=== PATIENT | female | born 1965 | race Caucasian/White ===

== ENCOUNTER 2017-05-08 13:40 | Emergency (ER) | payer OTHER, SELFPAY ==
--- NOTE | 2017-05-08 14:45 | EDM.PDOC ---
ED HPI GENERAL MEDICAL PROBLEM - General Chief Complaint: ENT Problem Stated Complaint: TOOTH PAIN/FLU LIKE SYMPTOMS Time Seen by Provider: 05/08/17 14:08 Source of Information: Reports: Patient History Limitations: Reports: No Limitations - History of Present Illness INITIAL COMMENTS - FREE TEXT/NARRATIVE: 51-year-old female presents to the ER for multiple different complaints. Current complaints include pain to the right lower tooth, feeling shaky and fatigued. She also is complaining of cold symptoms. Patient reports that she's been experiencing dental pain for about one week. Pain is primarily to the right lower molar. She was at the dentist on . Dentist informed her it was her gums. She reports x-rays were done. She said she was prescribed a mouth rinse but is my had minor relief. She states that she was instructed seen [employer]ator [employer]. Reports that she took some of her daughter' s hydrocodone last night and earlier today. States that it hasn't helped much. Reports pain radiating to her right ear and jaw. No headaches or sinus pain. Patient also reports she's been experiencing flulike symptoms. States she's been ill with flu-like symptoms since 2 weeks before Christina. This sounds like her symptoms gradually improved and then they worsened again. She denies any coughs, fevers or vomiting. She states that she's had diarrhea and nausea. She reports feeling shaky, weak, decreased energy and states that her legs feel shaky. Reports that her grandson did have influenza type A. She states that she had some amoxicillin at home but she gave this to her . She states his symptoms have now completely resolved but her symptoms have persisted. Patient also feels that her thyroid may be off. She is diagnosed with hypothyroidism. She is prescribed levothyroxin but has not been taking it. She is currently taking "thyroid gold", a homeopathic medication. Was previously taking 4 tabs of thyroid gold. About 1 week ago decreased to 2 tabs of the medication. Right Tooth/Teeth Pain Score (Numeric/FACES): 10 - Related Data Allergies Allergy/AdvReac Type Severity Reaction Status Date / Time No Known Allergies Allergy Verified 05/08/17 14:23 Home Meds: Home Meds Acetaminophen/oxyCODONE [Percocet 325-5 MG] 1 tab PO Q6HR PRN #15 tab 05/08/17 [ Rx] Amoxicillin/Potassium Clav [Augmentin 875-125 Tablet] 1 each PO BID #20 tablet 05/08/17 [Rx] Cholecalciferol (Vitamin D3) [Vitamin D3] 5,000 unit PO DAILY 05/08/17 [History] ClonazePAM [KlonoPIN] 1 mg PO BEDTIME 05/08/17 [History] Gabapentin [Neurontin] 300 mg PO BID 05/08/17 [History] Omeprazole/Sodium Bicarbonate [Zegerid] 1 cap PO DAILY 05/08/17 [History] QUEtiapine [SEROquel] 12.5 mg PO BEDTIME 05/08/17 [History] Thyro-Gold. 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 OB/BYN History: Musculoskeletal History: Reports: Other (See Below) Other Musculoskeletal History: tendonitis in shoulders Neurological History: Reports: Migraines Psychiatric History: Reports: Aggressive/Hostile Behaviors, Antisocial Behaviors , Anxiety, Depression, Emotional Problems, Mood Swings, Panic Attack, PTSD, Suicide Attempt Endocrine/Metabolic History: Reports: Diabetes, Type II, Hypothyroidism Dermatologic History: Reports: Psoriasis - Past Surgical History Female Surgical History: Reports: Hysterectomy Social & Family History - Family History Oncologic: Reports: Breast Other Oncologic Family History: mother had breast CA - Tobacco Use Smoking Status *Q: Never Smoker - Caffeine Use Caffeine Use: Reports: Coffee - Recreational Drug Use Recreational Drug Use: No ED ROS ENT - Review of Systems Review Of Systems: See Below Constitutional: Reports: Malaise, Fatigue, Other (reports feeling shaky). Denies: Fever HEENT: Reports: Dental Pain (right lower molar), Ear Pain. Denies: Sinus Problem Respiratory: Denies: Cough GI/Abdominal: Reports: Diarrhea, Nausea. Denies: Vomiting Neurological: Denies: Headache ED EXAM, ENT - Physical Exam Exam: See Below Exam Limited By: No Limitations General Appearance: Alert, WD/WN, No Apparent Distress, Obese Eye Exam: Bilateral Eye: Normal Inspection Ears: Normal External Exam, Normal Canal, Hearing Grossly Normal, Normal TMs Nose: Normal Inspection Mouth/Throat: Normal Inspection, Normal Oropharynx, Dental Pain (#30), Dental Tenderness (#30), Other (dental fernando #30; gum regression and inflammation to # 30). No: Dental Abcess Head: Atraumatic, Normocephalic. No: Sinus Tenderness Neck: Normal Inspection Respiratory/Chest: No Respiratory Distress, Lungs Clear, Normal Breath Sounds Cardiovascular: Normal Peripheral Pulses, Regular Rate, Rhythm, No Murmur Neurological: Alert, Oriented, Normal Cognition Psychiatric: Normal Affect, Normal Mood Skin: Warm, Dry, Normal Color Course - Vital Signs Last Recorded V/S: Last Vital Signs Temp 36.8 C 05/08/17 13:49 Pulse 98 05/08/17 13:49 Resp 18 05/08/17 13:49 BP 124/88 05/08/17 13:49 Pulse Ox 98 05/08/17 13:49 - Orders/Labs/Meds Labs: Laboratory Tests 05/08/17 05/08/17 Range/Units 14:38 14:38 WBC 4.84 (3.98-10.04) K/mm3 RBC 4.53 (3.98-5.22) M/mm3 Hgb 12.8 (11.2-15.7) gm/L Hct 38.0 (34.1-44.9) % MCV 83.9 (79.4-94.8) fl MCH 28.3 (25.6-32.2) pg MCHC 33.7 (32.2-35.5) g/dl RDW Std Deviation 39.9 (36.4-46.3) fL Plt Count 160 L (182-369) K/mm3 MPV 11.6 (9.4-12.3) fl Neutrophils % (Manual) 70 H (40-60) % Band Neutrophils % 0 (0-10) % Lymphocytes % (Manual) 20 (20-40) % Atypical Lymphs % 0 % Monocytes % (Manual) 9 (2-10) % Eosinophils % (Manual) 1 (0.7-5.8) % Basophils % (Manual) 0 L (0.1-1.2) Platelet Estimate Adequate Polychromasia 1+ slight Anisocytosis 1+ slight RBC Morph Comment Abnormal Sodium 144 (136-145) mEq/L Potassium 3.9 (3.5-5.1) mEq/L Chloride 110 H (98-107) mEq/L Carbon Dioxide 21 (21-32) mEq/L Anion Gap 16.9 H (5-15) BUN 15 (7-18) mg/dL Creatinine 1.0 (0.55-1.02) mg/dL Est Cr Clr Drug Dosing 64.72 mL/min Estimated GFR (MDRD) 58 (>60) mL/min BUN/Creatinine Ratio 15.0 (14-18) Glucose 118 H (74-106) mg/dL Calcium 9.1 (8.5-10.1) mg/dL Total Bilirubin 0.4 (0.2-1.0) mg/dL AST 51 H (15-37) U/L ALT 56 (14-59) U/L Alkaline Phosphatase 85 (46-116) U/L C-Reactive Protein 2.8 H* (<1.0) mg/dL Total Protein 6.9 (6.4-8.2) g/dl Albumin 3.3 L (3.4-5.0) g/dl Globulin 3.6 gm/dL Albumin/Globulin Ratio 0.9 L (1-2) TSH 3rd Generation < 0.007 L (0.358-3.74) uIU/mL - Re-Assessments/Exams Free Text/Narrative Re-Assessment/Exam: 05/08/17 16:02 influenza returned negative. I reviewed the lab results with the patient. She is very hyperthyroid. I recommend she stop the thyroid gold and have close follow-up with family medicine. She has been self medicating and is likely mis dosing herself. I will treat her for dental infection. No obvious abscess. Possible with the gum inflammation and regression present she has infection in the gums. Will discharge. Discharge instructions as documented. Departure - Departure Time of Disposition: 16:04 Disposition: Home, Self-Care 01 Condition: Fair Clinical Impression: Hyperthyroidism, Dental infection - Discharge Information Prescriptions: Acetaminophen/oxyCODONE [Percocet 325-5 MG] 1 tab PO Q6HR PRN #15 tab PRN Reason: Pain Amoxicillin/Potassium Clav [Augmentin 875-125 Tablet] 1 each PO BID #20 tablet Instructions: Hyperthyroidism, Dental Abscess, [id number] Referrals: Gian Stewart [Primary Care Provider] - Forms: ED Department Discharge Additional Instructions: Stop taking the thyroid gold medication that you purchased [id number]. Follow-up with family medicine within 2 weeks to have your thyroid rechecked. Take [id number] Tylenol and Motrin as needed for pain relief. Do not take more than 4 g of Tylenol from all sources in one day. do not take more than 3200 mg of ibuprofen from all sources in one day. For pain not relieved by over- the-counter Tylenol or Motrin, may take Percocet 1-2 tabs every 6 hours as needed for pain. Do not drive or operate machinery within 12 hours of taking Percocet. Percocet can be habit-forming, I recommend you take as few these as needed to control your pain. Take Augmentin 1 tab twice a day for 10 days. Recommend taking this with food. Take yogurt or probiotic to help reduce side effects of upset stomach, nausea and diarrhea. Follow-up with the dentist in 1-2 weeks. Please return to the ER if your symptoms change or worsen.
== END 2017-05-08 16:15 | disposition home or self-care (01) ==
LOC: JD.ED 13:40
DX: K04.7 Periapical abscess without sinus (principal); E05.90 Thyrotoxicosis, unspecified without thyrotoxic crisis or storm; E11.9 Type 2 diabetes mellitus without complications; F41.0 Panic disorder [episodic paroxysmal anxiety]; Z79.899 Other long term (current) drug therapy
CPT/HCPCS: 36415; 80053; 84443; 85025; 86140; 87804; 99283